=== PATIENT | male | born 1990 | race Caucasian/White ===

== ENCOUNTER 2023-09-18 19:07 | Emergency (ER) | payer OTHER, SELFPAY ==
[2023-09-18 19:35] VITALS: BP 147/96; PULSE 63; RESP 18; TEMP 36.5; O2SAT 96; BMI 39.0
--- NOTE | 2023-09-18 19:35 | ED_ITS ---
HPI - General Adult General Chief complaint: General Medical Stated complaint: swallowed antifreeze, couple hours ago at work Source: patient Mode of arrival: ambulatory Limitations: no limitations History of Present Illness HPI narrative: 33 year old male with no significant pmhx presents to the ED today for evaluation of accidental ingestion of antifreeze earlier this morning while at work. He currently works as a conveyor maintenance mechanic. He admits to working under a car earlier today attempting to loosen a bolt when something fell, causing the coolant to spill onto his face. He endorses swallowing a small amount of the antifreeze. The coolant did not splash into his eyes. Admits that he felt generally well after ingestion. Upon returning home from work this evening, he began to feel a warm sensation in his throat with associated nausea without vomiting. He is able to swallow without difficulty. No other complaints in ED. Denies fever, chills, chest pain, palpitations, shortness of breath, abdominal pain, or rashes. Related Data Allergies Allergy/AdvReac Type Severity Reaction Status Date / Time No Known Allergies Allergy Verified 09/18/23 19:35 Review of Systems 2 Review of Systems: Yes all other systems are reviewed and are negative [facility] Past Medical History Attestation statement: The following information was validated with the patient. Source: old records reviewed and nursing notes reviewed Social History Social History Advance Directives: No Advance Directives Information Provided: No Physical Exam ED Vital Signs: Vital Signs - 24 hr 09/18/23 19:35 Temperature 97.7 F Pulse Rate 63 Respiratory Rate 18 Blood Pressure 147/96 H Pulse Oximetry 96 Oxygen Delivery Method Room Air BMI result Body Mass Index 39.0 Patient is hypertensive to 147/96, vital signs otherwise within normal limits. Const General: cooperative, healthy appearing, comfortable, no acute distress, alert and awake Orientation/consciousness: patient oriented x3 Limitations: no limitations HENMT Other: + tongue and lips wnl. posterior oropharynx without erythema or edema. no erosions. controlling secretions and speaking in compelte sentences. Eyes General: appearance normal, both eyes and all related structures Pupils: Equal, round and reactive pupils present Neck Neck: Yes normal visual inspection Chest Chest palpation & inspection: normal inspection of the chest Resp Effort & Inspection: normal respiratory effort and able to speak in complete sentences Auscultation: clear to auscultation bilaterally Cardio Rate: regular rate Rhythm: regular rhythm Peripheral pulses: radial pulses present GI Inspection: Yes normal to inspection Palpation (GI): Soft to palpation and nontender Skin General skin exam: no rashes or lesions noted Neuro General: patient oriented x3 and gait normal Cranial nerves: Yes Equal, round and reactive pupils present Coordination: [id number] test normal, [id number] test normal and Normal rapid alternating movements of the distal upper extremity present (Neuro) Pupils: Normal pupillary reactivity/response: bilateral Extrem General: Yes normal to inspection Course Course Course Narrative: 1954-- I personally contacted poison control. After discussing patient's history, presentation, and current vital signs, their recommendation is to obtain an EKG, serum ethanol level, CBC, BMP, and serum osmolality. They will call the ED in a few hours to check on lab results to determine if patient has an osmolar gap. On interpretation of labs, CBC is without leukocytosis or anemia. Chemistry is without any acute electrolyte abnormalities requiring intervention. There is no anion gap. Serum osmolarity wnl. Ethanol undetectable. EKG shows sinus bradycardia at a rate of 57 bpm, QT 446, no acute ischemic changes or ST elevations. Work up is unremarkable. >> Patient left the emergency department before myself or any other clinicians could review or explain physical exam findings, test results, need or lack there of for additional testing treatment options, or a treatment plan. Medical Decision Making Medical Decision Making [facility] Narrative: 33 year old male with no significant pmhx presents to the ED today for evaluation of accidental ingestion of antifreeze earlier this morning while at work. Patient is hypertensive to 147/96, otherwise vitals are within normal limits. Patient is well appearing and in no acute distress. Breathing is unlabored. lungs are clear to auscultation b/l. RRR. posterior oropharynx is within normal limits. exam is nonfocal. Concern for ingestion of small amount of ethylene glycol, electrolyte abnormality, arrhythmia. Unlikely ACS, esophagitis/ esophageal rupture, ALLISON, shock. Plan for ekg and labs. Differential Diagnosis Differential Diagnoses: The differential diagnosis associated with the presentation includes as above. Admission/Observation Consideration of admission/observation: Escalation of care including admission/observation considered In this patient with ingestion of unknown amount of ethylene glycol, admission was considered. Lab Data [facility] Lab Attestation statement: I reviewed the patient's lab results. as above. 09/18/23 20:11 09/18/23 20:11 Labs: Lab Results 09/18/23 Range/Units 20:11 WBC 7.1 (4.8-10.8) X10*3/uL RBC 4.83 (4.60-5.80) X10*6/uL Hgb 14.7 (14.0-18.0) g/dl Hct 42.7 (42.0-52.0) % MCV 88.4 (80.0-98.0) fL MCH 30.4 (27.0-33.0) pg MCHC 34.4 (31.0-36.0) g/dl RDW 12.6 (11.0-16.0) % Plt Count 238 (160-400) X10*3/uL MPV 10.6 (9.4-12.4) fL Immature Gran % (Auto) 0.6 H (0.0-0.4) % Neut % (Auto) 56.0 (45-73) % Lymph % (Auto) 35.5 (20-40) % Rhea % (Auto) 6.4 (2-11) % Eos % (Auto) 0.9 (0-4) % Baso % (Auto) 0.6 (0-2) % Lymph # (Auto) 2.5 (1.2-4.9) X10*3/uL Rhea # (Auto) 0.5 (0.1-1.2) X10*3/uL Eos # (Auto) 0.1 (0.0-0.4) X10*3/uL Baso # (Auto) 0.0 (0.0-0.2) X10*3/uL Abs Immat Gran (auto) 0.04 H (0.00-0.03) X10*3/uL Absolute Neuts (auto) 4.0 (2.0-8.3) x10*3/uL Absolute Nucleated RBC 0.000 (0.0-0.012) X10*3/uL Nucleated RBC % (auto) 0.0 (0.0-0.2) /100WBC Sodium 143 (135-145) mmol/L Potassium 4.3 (3.3-5.1) mmol/L Chloride 108 (96-108) mmol/L Carbon Dioxide 27 (22-29) mmol/L Anion Gap 12 (12-20) BUN 12 (9-16) mg/dL Creatinine 0.89 (0.5-1.4) mg/dL Estim Creat Clear Calc 152.2 Estimated GFR > 60 Random Glucose 108 (60-115) mg/dL Osmolality 304 (281-305) mosm/kg Calcium 9.8 (8.4-10.2) mg/dL Magnesium 2.5 (1.6-2.6) mg/dL Ethyl Alcohol < 10 mg/dL Independent Interpretation I performed an independent interpretation of an: EKG Interpretation: EKG showing sinus bradycardia at a rate of 57 bpm, QT 446, no acute ischemic changes or ST elevations. Independent Historian Clinical information obtained from an independent historian. History obtained from or confirmed by: Parent (mother) External Record Review External record reviewed: Inpatient record Social Determinants Patient?s care significantly limited by Social Determinants of Health including: Other Social Determinant of Health Critical Care Time Critical Care Time Critical Care Time: No Discharge Plan Discharge Clinical Impression: Accidental ingestion of toxic substance Qualifiers: Encounter type: initial encounter Qualified Code(s): T65.91XA - Toxic effect of unspecified substance, accidental (unintentional), initial encounter Patient Disposition: Left W/O Completing Treatment Discharge Date/Time: 09/19/23 01:32
--- NOTE | 2023-09-18 19:59 | ECG_ITS ---
Test Reason : TOXIC INGESTION Blood Pressure : / mmHG Vent. Rate : 057 BPM Atrial Rate : 057 BPM P-R Int : 148 ms QRS Dur : 092 ms QT Int : 446 ms P-R-T Axes : 056 051 051 degrees QTc Int : 434 ms Sinus bradycardia Possible Left atrial enlargement Borderline ECG No previous ECGs available Referred By: Nirmala Mchugh Electronically Signed By:MAYO RUSSO
[2023-09-18 20:15] LABS: MANUAL DIFF FLAG NO
[2023-09-18 20:24] LABS: Basophils Percent Auto 0.6 % (0-2); Eosinophils Absolute Auto 0.1 X10*3/uL (0.0-0.4); Eosinophils Percent Auto 0.9 % (0-4); Hematocrit 42.7 % (42.0-52.0); Hemoglobin 14.7 g/dl (14.0-18.0); Imm Gran Abs Auto 0.04 X10*3/uL (0.00-0.03); Imm Gran Pct Auto 0.6 % (0.0-0.4); Lymphocytes Absolute Auto 2.5 X10*3/uL (1.2-4.9); Lymphocytes Percent Auto 35.5 % (20-40); Mean Corpuscular HGB Conc 34.4 g/dl (31.0-36.0); Mean Corpuscular Hemoglobin 30.4 pg (27.0-33.0); Mean Corpuscular Volume 88.4 fL (80.0-98.0); Mean Platelet Volume 10.6 fL (9.4-12.4); Monocytes Absolute Auto 0.5 X10*3/uL (0.1-1.2); Monocytes Percent Auto 6.4 % (2-11); Platelet Count 238 X10*3/uL (160-400); Red Blood Count 4.83 X10*6/uL (4.60-5.80); Red Cell Distribution Width 12.6 % (11.0-16.0); White Blood Count 7.1 X10*3/uL (4.8-10.8)
[2023-09-18 20:33] LABS: Anion Gap 12 (12-20); Blood Urea Nitrogen 12 mg/dL (9-16); Calcium 9.8 mg/dL (8.4-10.2); Carbon Dioxide 27 mmol/L (22-29); Chloride 108 mmol/L (96-108); Creatinine Clr Calc Pharmacy 152.2; Estimated Glomerular Filt Rate > 60; Ethanol < 10 mg/dL; Glucose Random 108 mg/dL (60-115); Magnesium 2.5 mg/dL (1.6-2.6); Osmolality, Serum 304 mosm/kg (281-305); Potassium 4.3 mmol/L (3.3-5.1); Sodium 143 mmol/L (135-145)
--- NOTE | 2023-09-19 00:05 | PC.NURSE ---
poison control updated and pt is medicaly cleared by Jennyfer from poison control.
--- NOTE | 2023-09-19 00:32 | PC.NURSE ---
pt called multiple times and not in waiting room. poison control states ok for pt for discharge see [facility] note.
== END 2023-09-19 01:32 | disposition left against medical advice (07) ==
LOC: HO.ED 09-19 01:28
PROVIDERS: Physician Assistant Medical; Emergency Provider Emergency Medicine
DX: T65.91XA Toxic effect of unspecified substance, accidental (unintentional), initial encounter (principal); I10 Essential (primary) hypertension; Y92.89 Other specified places as the place of occurrence of the external cause
CPT/HCPCS: 36415; 80048; 80307; 83735; 83930; 85025; 93005; 99283

== ENCOUNTER → 2023-09-18 19:59 | Outpatient (BNV) | payer OTHER, SELFPAY | PROVIDERS: Emergency Provider Emergency Medicine; Visit Provider Internal Medicine | DX: R00.1 Bradycardia, unspecified (principal) | CPT/HCPCS: 93010 ==

== ENCOUNTER → 2025-04-10 15:31 | Outpatient (BNVA) | payer SELFPAY | PROVIDERS: Visit Provider Physician Assistant Medical | DX: Z02.79 Encounter for issue of other medical certificate (principal) ==